=== PATIENT | female | born 1980 ===

== ENCOUNTER 2017-01-19 22:38 | Emergency (ER) | payer SELFPAY ==
[2017-01-19 22:48] VITALS: BP 102/62; PULSE 83; RESP 18; TEMP 98.4; O2SAT 100
[2017-01-19] MEDS ORDERED: Sodium Chloride 0.9% 1,000 ML IV STA (22:51)
--- NOTE | 2017-01-19 23:08 | ED PDOC ---
HPI: Female Pain Time Seen by Provider: 01/19/17 23:02 Chief Complaint (Nursing): Female Genitourinary Chief Complaint (Provider): vaginal bleeding History Per: Patient (36 y/o female A2 here with spotting x 4 weeks with more increased bleeding x 2 days. Patient concerned as she miscarried at 12 weeks prior . Notes crampy lower abdominal pain. Has had US/ bloodwork January [address] Oliver today and sent to ED for evaluation. ) Past Medical History Reviewed: Historical Data, Nursing Documentation, Vital Signs Vital Signs: Last Vital Signs Temp 98.4 F 01/19/17 22:43 Pulse 83 01/19/17 22:43 Resp 18 01/19/17 22:43 BP 102/62 01/19/17 22:43 Pulse Ox 100 01/19/17 22:43 - Surgical History Surgical History: Tonsillectomy - Family History Family History: States: No Known Family Hx - Allergies Allergies/Adverse Reactions: Allergies Allergy/AdvReac Type Severity Reaction Status Date / Time No Known Allergies Allergy Verified 01/19/17 22:43 Review of Systems ROS Statement: Except As Marked, All Systems Reviewed And Found Negative Genitourinary Female: Positive for: Vaginal Bleeding Physical Exam - Reviewed Nursing Documentation Reviewed: Yes Vital Signs Reviewed: Yes - Physical Exam Appears: Positive for: Well, Non-toxic, No Acute Distress Head Exam: Positive for: ATRAUMATIC, NORMAL INSPECTION, NORMOCEPHALIC Skin: Positive for: Normal Color, Warm, DRY Eye Exam: Positive for: EOMI, Normal appearance, PERRL ENT: Positive for: Normal ENT Inspection Neck: Positive for: Normal, Painless ROM Cardiovascular/Chest: Positive for: Regular Rate, Rhythm Respiratory: Positive for: CNT, Normal Breath Sounds Gastrointestinal/Abdominal: Positive for: Normal Exam, Bowel Sounds, Soft Pelvic Exam: Positive for: Active Bleeding, Other (closed cervix.) Back: Positive for: Normal Inspection Extremity: Positive for: Normal ROM Neurologic/Psych: Positive for: Alert, Oriented - ECG O2 Sat by Pulse Oximetry: 100 - Progress ED Course And Treament: NS 1 liter 500ml per hour Disposition - Clinical Impression Clinical Impression: Threatened miscarriage - Patient ED Disposition Is Patient to be Admitted: Transfer of Care - Disposition Disposition: Transfer of Care Disposition Time: 23:11 Condition: FAIR Patient Signed Over To: Tamika Hinojosa Handoff Comments: US/bloodwork
--- NOTE | 2017-01-19 23:22 | ED PDOC ---
- Laboratory Results Result Diagrams: 01/19/17 23:10 01/19/17 23:10 - ECG O2 Sat by Pulse Oximetry: 100 Medical Decision Making Medical Decision Making: Case endorsed to public relations writer from SANJUANITA Busch at midnight pending diagnostic review and re-eval HPI: Female Pain Time Seen by Provider: 01/19/17 23:02 Chief Complaint (Nursing): Female Genitourinary Chief Complaint (Provider): vaginal bleeding History Per: Patient (36 y/o female A2 here with spotting x 4 weeks with more increased bleeding x 2 days. Patient concerned as she miscarried at 12 weeks prior . Notes crampy lower abdominal pain. Has had US/ bloodwork January [address] Oliver today and sent to ED for evaluation. ) Hgb 12.7 Blood type B+ Beta 6754 IMPRESSION: Intrauterine embryonic demise at approximately 7 weeks 4 days OB con-call, Dr. Carey contacted and case discussed. Advised Pt stable for discharge at this time, follow up in office on next week. Pt educated on results and plan of action. Demonstrated full understanding Pt offered Cytotec; however, declined at this time Advised to return to ED if at anytime condition worsens Disposition - Clinical Impression Clinical Impression: demise - POA Present On Arrival: None - Disposition Disposition: Routine/Home Disposition Time: 00:52 Condition: FAIR Prescriptions: traMADol [Ultram] 50 mg PO Q4 #10 tab Instructions: Spontaneous Miscarriage (ED)
[2017-01-19 23:32] LABS: BASO % 0.6 % (0.0-2.0); EOS % 0.6 % (0.0-4.0); HEMATOCRIT 38.3 % (34.0-47.0); LYMPH # 2.1 K/uL (1.0-4.3); LYMPH % 28.5 % (20.0-40.0); MEAN CELL VOLUME 87.6 fl (81.0-99.0); MEAN CORPUSCULAR HGB CONC 33.2 g/dL (33.0-37.0); MEAN PLATELET VOLUME 9.2 fl (7.2-11.7); MONO # 0.7 K/uL (0.0-0.8); MONO % 9.6 % (0.0-10.0); NEUT # 4.5 K/uL (1.8-7.0); NEUT % 60.7 % (50.0-75.0); WHITE BLOOD COUNT 7.4 K/uL (4.8-10.8)
[2017-01-19 23:42] LABS: ALB/GLOB RATIO 1.5 (1.0-2.1); ALKALINE PHOSPHATASE 45 U/L (38-126); ALT/SGPT 33 U/L (9-52); AST/SGOT 21 U/L (14-36); BILIRUBIN,TOTAL 0.2 mg/dl (0.2-1.3); BLOOD UREA NITROGEN 17 mg/dl (7-17); CALCIUM 9.4 mg/dL (8.4-10.2); CARBON DIOXIDE 22 mmol/L (22-30); CHLORIDE 104 mmol/L (98-107); GFR AFRICAN-AMERICAN > 60; GLUCOSE,RANDOM 92 mg/dL (65-105); POTASSIUM 3.9 MMOL/L (3.6-5.0); SODIUM 138 mmol/l (132-148); TOTAL PROTEIN 6.9 G/DL (6.3-8.2)
[2017-01-20 00:25] LABS: PARTIAL THROMBOPLASTIN TIME 32.4 Seconds (25.6-37.1)
--- NOTE | 2017-01-20 15:25 | US ---
OB ultrasound dated 01/19/2017. History: Threatened Transabdominal/transvaginal sonographic evaluation of the pelvis performed. The uterus is anteverted measuring approximately 10.5 x 6.2 x 8.0 . . Uterine fibroid measuring approximately 2.3 x 1.9 x 2.4 cm in the uterine body - cervical region There is an intrauterine gestational sac. Measurements: Gestational sac: MSD = 2.7 Cm = 7 weeks 4 days Yolk sac: Not visualized pole: 1.3 cm = 7 weeks 4 days Heart motion: No heart rate detected. Average ultrasound age = 7 weeks 4 days +/-0 weeks 4 days Right ovary measures approximately 2.6 x 1.6 x 1.7 cm. Right ovary exhibits arterial flow. Left ovary measures 3.1 x 1.8 x 1.5 cm and also exhibits arterial flow Impression: Intrauterine gestation approximately 7 weeks 4 days with no heart rate detected. Findings consistent with demise. Concordant preliminary report provided by overnight radiology service
== END 2017-01-20 01:14 | disposition home or self-care (01) ==
LOC: H.ER 22:38
DX: O20.0 Threatened abortion (principal)
CPT/HCPCS: 76817; 80053; 84702; 85025; 85610; 85730; 86850; 86900; 96360; 99283; J7040